=== PATIENT | female | born 1990 | race Caucasian/White ===

== ENCOUNTER → 2017-11-09 | Outpatient (CLI) | payer OTHER | END | disposition home or self-care (01) | LOC: C.PAPS 18:36 | PROVIDERS: ATTEND Physician Assistant | DX: Z01.411 Encounter for gynecological examination (general) (routine) with abnormal findings (principal); R87.628 Other abnormal cytological findings on specimens from vagina ==

== ENCOUNTER 2019-11-18 11:02 | Inpatient (IN) ==
[2019-11-18] MEDS ORDERED: BETAMETH SOD PHOS/ACETATE IA 6 MG/ML IM STA (11:29)
[2019-11-18] MEDS ORDERED: OXYTOCIN 30 UNITS/500 ML BAG IV PRN ×2 (11:29→22:29)
[2019-11-18] MEDS ORDERED: LACTATED RINGER'S 1,000 ML IV PRN (11:29)
[2019-11-18] MEDS ORDERED: PENICILLIN G POTASSIUM 6 MU in DEXTROSE 5% 250 ML IV STA (11:29)
[2019-11-18] MEDS ORDERED: PENICILLIN G POTASSIUM 3 MU in DEXTROSE 5% 100 ML IV PRN (11:29)
[2019-11-18] MEDS ORDERED: BETAMETH SOD PHOS/ACETATE IA 6 MG/ML ONE (11:34)
--- NOTE | 2019-11-18 11:42 | History & Physical Report ---
Date of Service November 18, 2019 Assessment & Plan (1) : IV fluids, EFM/toco. Penicillin for unknown GBS. Celestone - will give first dose, unlikely she will be able to recieve 2nd dose in 24h. I have discussed case with physical therapy nurse Dr Jack and he will attend delivery. (2) labor: History of Present Illness Chief Complaint: labor Primary Care Provider: Callie Pak MD 29yo @ 33 10/14, presents with pains that come and go every few minutes. Has been feeling unwell for the past few days, and this got much worse today with loose-stool diarrhea and vaginal spotting. That vaginal spotting started at 7:30am today - while she did not feel that this was her membranes rupturing, will assume that this is when SROM occurred. complicated by: elevated BMI, rubella equivocal, insufficient fraction on NIPT. She was evaluated by MFM at [place] - and declined further testing. Allergies Allergy/AdvReac Type Severity Reaction Status Date / Time No Known Allergies Allergy Verified 11/11/19 08:43 Home Medications Home Medications Medication Instructions Recorded Confirmed Type [id number] fumarate-FA 1 tab PO DAILY 07/03/19 11/11/19 History [] Patient History Medical History Ovarian cyst Varicella Surgical History S/P wisdom tooth extraction Family History Father Heart disease Hypertension Hypercholesteremia Social History Preferred Language: Italian marital status: marital status details: Yovani Hamilton (27) [phone] Current Living Situation: Spouse current occupational status: employed 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 No s/s chorio or abruption. Skin: no rashes, warm and dry Psychiatric: A+Ox3, euthymic affect Results & Data Vital Signs (Past 12 Hours) Vital Signs Pulse BP 11/18/19 11:09 89 136/68 Monitoring External Monitor FHT 140s-150s. Mod lolis. No accels. No decels. [place] no ctx on toco, however per patients sensations, she seems to be patrick Q 3m. Not able to palpate ctx through abdomen - this is likely due to body habitus. Coding Level of Care Code None Diagnoses Z34.90 labor O60.00
[2019-11-18 11:50] LABS: Hematocrit (blood only) 40.2 % (37-47); Hemoglobin 13.7 g/dL (12.0-16.0); Mean Corpuscular Hemoglobin 29.7 pg (25-34); Mean Corpuscular Volume 87.2 fL (80-100); Mean Platelet Volume 11.1 fL (7.4-10.4); Platelet Count 158 K/uL (130-400); RDW Coefficient of Variation 13.8 % (11.5-14.5); RDW Standard Deviation 43.8 fL (36.4-46.3); Red Blood Count 4.61 M/uL (4.2-5.4); White Blood Count 21.62 K/uL (4.8-10.8)
[2019-11-18 11:55] LABS: Mean Corpuscular Hgb Conc 34.1 g/dL (32-36)
[2019-11-18] MEDS ORDERED: MoRPHine SULFATE 2 MG/ML CARP ONE (12:28)
[2019-11-18] MEDS ORDERED: MoRPHine SULFATE 4 MG/ML 1 ML CARP\\VIAL ONE (12:28)
[2019-11-18] MEDS ORDERED: MoRPHine SULFATE 10 MG/ML CARP/VIAL IV STA (12:31)
[2019-11-18] MEDS ORDERED: PROMETHAZINE HCL 12.5 MG in SODIUM CHLORIDE 0.9% 50 ML IV ONE (12:40)
--- NOTE | 2019-11-18 12:49 | Anesthesiology Consultation ---
Date of Service November 18, 2019 Assessment & Plan Chart Review Chart Review: Acceptable Risk for Surgery and Acceptable Risk for Labor Epidural Consults Requested none ASA ASA2 Proposed Anesthesia Anesthesia Type: Spinal Risk / Benefits Reviewed With: PT / POA / Parent / Guardian, Accepts Plan and Informed Consent Obtained Additional Comments: saddleblock History Height/Weight Height: 5 ft 4 in Weight: 106.594 kg Allergies Allergy/AdvReac Type Severity Reaction Status Date / Time No Known Allergies Allergy Verified 11/11/19 08:43 Medications Home Medications Medication Instructions Recorded Confirmed Last Taken [id number] fumarate-FA 1 tab PO DAILY 07/03/19 11/11/19 Unknown [] Active Medications Generic Name Dose Route Start Last Admin Trade Name Freq PRN Reason Stop Dose Admin Lactated Ringer's 1,000 mls @ 125 mls/hr 11/18/19 11:29 11/18/19 11:30 Lr IV 11/20/19 11:28 999 mls/hr .Q8H PRN Administration L&D Protocol Protocol Oxytocin 30 units in 500 mls @ 333.333 mls/hr 11/18/19 11:29 11/18/19 12:30 Pitocin IV 12/18/19 11:28 59.94 units/hr .Q1H30M PRN 999 mls/hr Bleeding Control Administration Protocol 20 UNITS/HR Promethazine HCl 12.5 mg/ 50.5 mls @ 202 mls/hr 11/18/19 12:40 11/18/19 12:41 Sodium Chloride IV 11/18/19 12:54 202 mls/hr NOW ONE Administration NPO Date Last Intake of Fluids: 11/18/19 Time Last Intake of Fluids: 00:00 Date Last Intake of Solids: 11/18/19 Time Last Intake of Solids: 00:00 Past Medical History Medical History Ovarian cyst Varicella Exercise / Class Metabolic Activity II 4-5 Yardwork/Stairs/Walk up hill Past Family History Family History Father Heart disease Hypertension Hypercholesteremia Past Surgical History Surgical History S/P wisdom tooth extraction Past Anesthesia History No Hx of Anesthesia Complications and No Family Hx of Anesthesia Complications History of PONV No Hx of PONV and No Hx of Motion Sickness Social History Smoking Status: Never smoker Hx Alcohol Use: No Hx Substance Use: No Physical Exam Vital Signs Last Vital Signs Temp 37.5 C 11/18/19 11:09 Pulse 117 H 11/18/19 12:39 Resp 20 11/18/19 11:09 BP 124/56 L 11/18/19 12:39 ENMT Mouth: no TMJ abnormality Thyromental Distance: > or= 3.5 Finger Breadths Mallampati Class: II Neck normal visual inspection and trachea midline; neck extension not limited Respiratory normal respiratory effort Auscultation: lungs clear to auscultation bilaterally Cardiovascular Rate/Rhythm: regular rate and regular rhythm Heart Sounds: no murmur Musculoskeletal Spine: normal cervical ROM Extremities: full ROM of extremities Neurologic moves all extremities Psychiatric Orientation: alert and oriented x 3 Testing Laboratory Results 11/18/19 11:42
--- NOTE | 2019-11-18 13:17 | Delivery Summary ---
Vaginal Delivery Summary Date of Service November 18, 2019 Vaginal Delivery Summary Vaginal Delivery Summary: Pre-delivery diagnoses: 29yo @ 33 3/7, labor, obesity, insufficient fraction on NIPT, rubella equivocal Post-delivery diagnoses: same Procedure: spontaneous vaginal delivery Surgeon: Josseline Briseno DO Complications: none Findings: Viable male . Apgars: 8/9. Weight 4# 4.8oz Estimated blood loss: 400ml Description of delivery: The patient arrived to L&D at 9cm dilation and very uncomfortable. She quickly progressed to complete dilation. She rec'd loading dose Pen G for GBS unknown status, rec'd 1 dose celestone pre-delivery. She then began to push. She spontaneously vaginally delivered a viable from the cephalic presentation. The head delivered in DORI position. The shoulders and body delivered quickly. The baby was placed on mother's abdomen and a spontaneous cry was heard. The cord was doubly clamped and cut and the baby was handed off to the waiting tip cementer. A segment was retained for cord gases. Cord blood was obtained. The placenta was delivered spontaneously intact with a 3-vessel cord. The uterus and vagina were swept of clots and debris. IV pitocin was given. The uterus became firm. She was given 6mg morphine and 12.5mg phenergan and local infiltration of 1% lidocaine, however she had a large amount of pain with examination of the cervix, vagina, and perineum, and therefore exam was halted, she requested anesthesia consult before proceeding. Excellent hemostasis was observed. Will perform better examination and repair after anesthesia performs saddle block. Patient is not actively bleeding at the time, so I feel that waiting for better anesthesia is safe. The mother is recovering in stable and good condition in the room. Baby has been taken to the nursery for further eval by tip cementer. Josseline Briseno DO FACMIRANDAG
[2019-11-18] MEDS ORDERED: DiphenhydrAMINE HCL 50 MG/ML VIAL IV PRN (13:21)
[2019-11-18] MEDS ORDERED: ONDANSETRON INJ 2 MG/ML 2 ML VIAL IV PRN (13:21)
[2019-11-18] MEDS ORDERED: NALOXONE HCL 0.08 MG in SYRINGE 1.8 ML IV PRN (13:21)
[2019-11-18] MEDS ORDERED: NALOXONE HCL 0.4 MG/1 ML VIAL/CARP IV PRN (13:21)
[2019-11-18] MEDS ORDERED: NALBUPHINE HCL INJ 10 MG/ML AMP IV PRN (13:21)
[2019-11-18] MEDS ORDERED: LACTATED RINGER'S 500 ML IV PRN (13:21)
[2019-11-18] MEDS ORDERED: ePHEDrine sulfate 50 MG/ML AMP IV PRN (13:21)
[2019-11-18] MEDS ORDERED: KETOROLAC 30 MG/ML VIAL IV PRN (13:21)
[2019-11-18] MEDS ORDERED: NALOXONE HCL 1 MG in SODIUM CHLORIDE 0.9% 1000ML 1,000 ML IV PRN (13:21)
[2019-11-18 13:22] LABS: CO2 Cord Arterial Blood 53 mmHg (39.1-73.5); HCO3 Cord Arterial Blood 24 mmol/L (19.7-28.5); PO2 Cord Arterial Blood 19 mmHg (4.1-31.7); pH Cord Arterial Blood 7.27 (7.1-7.38)
[2019-11-18 13:23] LABS: Oxygen Sat Cord Arterial Blood < 60.0 % (<60)
[2019-11-18] MEDS ORDERED: SODIUM CHLORIDE 0.9% 1000ML 1,000 ML IV SCH (13:30)
--- NOTE | 2019-11-18 13:52 | Anesthesiology Progress Note ---
Date of Service November 18, 2019 Anesthesia Post Procedure Vital Signs Vital Signs: Temp Pulse Resp BP Pulse Ox 11/18/19 13:50 82 98 11/18/19 13:45 79 99 11/18/19 13:40 83 99 11/18/19 13:38 80 110/55 L 11/18/19 13:35 78 100 11/18/19 13:30 89 100 11/18/19 13:28 95 H 118/55 L 11/18/19 13:25 85 99 11/18/19 13:23 90 123/73 11/18/19 13:20 109 H 100 11/18/19 13:15 91 H 100 11/18/19 13:13 93 H 116/69 11/18/19 13:10 99 H 99 11/18/19 13:07 108 H 114/62 11/18/19 13:05 114 H 99 11/18/19 13:00 115 H 99 11/18/19 12:55 108 H 100 11/18/19 12:53 122 H 115/73 11/18/19 12:50 100 H 100 11/18/19 12:48 93 H 114/54 L 11/18/19 12:39 117 H 124/56 L 11/18/19 12:25 155 H 153/70 H 11/18/19 12:09 98 H 131/61 11/18/19 11:54 104 H 133/86 11/18/19 11:09 37.5 C 89 20 136/68 Transfer of Care Handoff Completed per policy Notes Mental Status: alert / awake / arousable Patient Amnestic to Procedure: Yes Nausea / Vomiting: adequately controlled Pain: adequately controlled Airway Patency, RR, SpO2: stable & adequate BP & HR: stable & adequate Hydration State: stable & adequate Anesthetic Complications: no major complications apparent and Pt Satisfied with anesthetic care
[2019-11-18] MEDS: IBUPROFEN 200 MG/10 ML UDC PO PRN (20:32)
[2019-11-18] MEDS ORDERED: BENZOCAINE 20% AER SPR 82.5 GM CAN EXT PRN ×2 (21:35→22:29)
[2019-11-18] MEDS ORDERED: bisacodyL 10 MG SUPP PR PRN (22:29)
[2019-11-18] MEDS ORDERED: SUPERCREAM 0.870% 15 GM JAR EXT PRN (22:29)
[2019-11-18] MEDS ORDERED: ACETAMINOPHEN SUSP 325 MG/10.15 ML UDC PO STA (22:29)
[2019-11-18] MEDS ORDERED: DIPHTHERIA/TETANUS/PERTUSSIS 0.5 ML SYR/VIAL IM ONE (22:29)
[2019-11-18] MEDS ORDERED: HYDROCORTISONE ACETATE 25 MG SUPP PR PRN (22:29)
[2019-11-18] MEDS ORDERED: ACETAMINOPHEN SUSP 325 MG/10.15 ML UDC PO PRN (22:29)
[2019-11-19 06:01] LABS: Hematocrit (blood only) 33.9 % (37-47); Hemoglobin 11.3 g/dL (12.0-16.0)
[2019-11-19] MEDS ORDERED: PRENATAL VITAMIN 1 TAB PO SCH (08:00)
--- NOTE | 2019-11-19 08:18 | Obstetrical Progress Note ---
Date of Service November 19, 2019 Assessment & Plan (1) : PPD#1 doing well. Patient desires discharge so she can get to [facility] to be with baby. Baby was transferred after delivery at 33w. Reviewed DC instructions, followup office 6w. Subjective Ambulation: ambulating normally Voiding: no voiding problems Diet Tolerance:: regular diet Lochia:: Moderate Feeding Type:: breast feeding PPD#1 doing well. Breast pumping. Review of Systems All systems reviewed & are unremarkable except as noted in HPI & below Physical Exam Constitutional WD/WN, vitals as above no acute distress Respiratory normal respiratory effort Cardiovascular Rate/Rhythm: regular rate and regular rhythm Gastrointestinal (Abdomen) Inspection/Auscultation: abdomen normal to inspection; abdomen not distended Percussion/Palpation: abdomen soft Genitourinary OB Exam Abdomen: + fundal height Fundus: + firm; not tender Results & Data Vital Signs (Past 12 Hours) Vital Signs Temp Pulse Resp BP 11/19/19 03:30 37.0 C 81 16 99/54 L 11/18/19 23:55 36.9 C 90 16 91/55 L
[2019-11-19] MEDS ORDERED: NON-FORMULARY MEDICATION (Pnv133-Ferrous Fumarate-Fa [Prenatal] 1 TAB) PO SCH (09:00)
[2019-11-19] MEDS: IBUPROFEN 200 MG/10 ML UDC PO PRN (10:00)
[2019-11-19] MEDS ORDERED: MEASLES, MUMPS & RUBELLA VIRUS VIAL SQ ONE (11:00)
== END 2019-11-19 12:25 | disposition home or self-care (01) | DRG 807 ==
LOC: OPB 11:02 → 4S1 11:04 → 4S2 17:32

== ENCOUNTER 2022-03-18 01:30 | Inpatient (IN) ==
[2022-03-18] MEDS ORDERED: LIDOCAINE 1% LOCAL 20 ML VIAL ONE (01:44)
[2022-03-18] MEDS ORDERED: BUTORPHANOL TARTRATE 1 MG/ML VIAL ONE (01:44)
[2022-03-18] MEDS ORDERED: HYDROCORTISONE ACETATE 25 MG SUPP PR PRN (02:00)
[2022-03-18] MEDS ORDERED: BENZOCAINE 20% AER SPR 82.5 GM CAN EXT PRN (02:00)
[2022-03-18] MEDS ORDERED: OXYTOCIN 30 UNITS/500 ML BAG IV PRN (02:00)
[2022-03-18] MEDS ORDERED: ACETAMINOPHEN 325 MG TAB PO PRN (02:00)
[2022-03-18] MEDS ORDERED: DIPHTHERIA/TETANUS/PERTUSSIS 0.5 ML SYR/VIAL IM ONE (02:00)
[2022-03-18 02:11] LABS: Hematocrit (blood only) 39.6 % (34.1-44.9); Hemoglobin 12.9 g/dl (12.0-16.0); Mean Corpuscular Hemoglobin 27.2 pg (25.0-34.0); Mean Corpuscular Hgb Conc 32.6 g/dL (32.0-36.0); Mean Corpuscular Volume 83.5 fL (80.0-100.0); Mean Platelet Volume 12.1 fL (9.4-12.3); Platelet Count 169 K/uL (130-400); RDW Coefficient of Variation 13.4 % (11.5-14.5); RDW Standard Deviation 40.7 fL (36.4-46.3); Red Blood Count 4.74 M/uL (3.93-5.22); White Blood Count 10.58 K/ul (4.8-10.8)
--- NOTE | 2022-03-18 02:17 | History & Physical Report ---
Date of Service March 18, 2022 Assessment & Plan (1) Status post vaginal delivery: Plan: 31 y/o now s/p delivery at home after precipitous labor and now delivery of placenta VSS pitocin running Attempted exam demonstrated what appears to be a 2nd degree however pt is intolerant of exam even after stadol. Had to get a saddle block with last delivery to get adequate cervical exam. Bleeding appears appropriate so I think ok to await anesthesia so that repair can be tolerated by pt and thorough exam can be performed Anesthesia contacted as unable to adequately perform exam to identify tears. Admission and Anticipated Discharge Date Admission Date: March 18, 2022 History of Present Illness Chief Complaint: Delivery at home Primary Care Provider: Callie Pak MD 31 y/o at 38 6/7 wga presented to L&D after delivery at home. Pt had called earlier this evening noting 1 ctx per hour. She was counseled regarding labor precautions and continued to monitor her symptoms. Approx 4 hours later she called noting contractions were q20-30 min and stronger than prior. Labor precautions/options were reviewed. 20 minutes later she noted that contractions were every few minutes and incredibly painful and was instructed to present to the hospital by ambulance as her is on a work trip. A few minutes prior to EMS arrival pt delivered at home. 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 Hx G1 2019 at 34 wks after PPROM G2 current 06/2021 neg cotest Allergies Allergy/AdvReac Type Severity Reaction Status Date / Time No Known Allergies Allergy Verified 03/18/22 02:05 Home Medications Medication Instructions Recorded Confirmed Type vit no.133-ferrous 1 tab PO DAILY 07/03/19 03/17/22 History fumarate 28 mg-folic acid 800 mcg tablet () Patient History Medical History Ovarian cyst delivery PROM (premature rupture of membranes) Varicella Surgical History S/P wisdom tooth extraction Family History Father Heart disease Hypertension Hypercholesteremia Lung cancer Uncle Prostate cancer Denies family history of Ovarian cancer Diabetes Breast cancer Social History Smoking Status: Never smoker Hx Alcohol Use: No Hx Substance Use: No Preferred Language: Turkish Communication Ability: Effective Community Development Planner Required: No Beliefs That Will Affect Care: None marital status: marital status details: Yovani Hamilton (29) [phone] Current Living Situation: Spouse Current Living Situation Comment: FOB, child, 1 dog current occupational status: employed current occupation: [employer] Feels Safe at Home: Yes Assistive Devices: None Results & Data ([facility]) Vital Signs (Past 12 Hours) Vital Signs Pulse BP 03/18/22 02:02 86 124/70 Coding Level of Care Code None Diagnoses Status post vaginal delivery
--- NOTE | 2022-03-18 02:35 | Anesthesiology Consultation ---
Date of Service March 18, 2022 Assessment & Plan Chart Review Chart Review: Patient NOT seen in Pre Admission Testing and Acceptable Risk for Labor Epidural Consults Requested none ASA ASA2 Proposed Anesthesia Anesthesia Type: Spinal (saddle block) Risk / Benefits Reviewed With: PT / POA / Parent / Guardian, Accepts Plan and Informed Consent Obtained History Height/Weight Height: 5 ft 4 in Weight: 111.13 kg Allergies Allergy/AdvReac Type Severity Reaction Status Date / Time No Known Allergies Allergy Verified 03/18/22 02:05 Medications Home Medications Medication Instructions Recorded Confirmed Last Taken vit no.133-ferrous 1 tab PO DAILY 07/03/19 03/18/22 03/17/22 17:00 fumarate 28 mg-folic acid 800 mcg tablet () Active Medications Generic Name Dose Route Start Last Admin Trade Name Freq PRN Reason Stop Dose Admin Oxytocin 30 units in 500 mls @ 333.333 mls/hr 03/18/22 02:00 03/18/22 01:40 Pitocin IV 59.94 units/hr .Q1H30M PRN 999 mls/hr Bleeding Control Administration Protocol 20 UNITS/HR Past Medical History Medical History Ovarian cyst delivery PROM (premature rupture of membranes) Varicella Exercise / Class Metabolic Activity II 4-5 Yardwork/Stairs/Walk up hill Past Family History Family History Father Heart disease Hypertension Hypercholesteremia Lung cancer Uncle Prostate cancer Denies family history of Ovarian cancer Diabetes Breast cancer Past Surgical History Surgical History S/P wisdom tooth extraction Past Anesthesia History No Hx of Anesthesia Complications and No Family Hx of Anesthesia Complications History of PONV No Hx of PONV and No Hx of Motion Sickness Social History Smoking Status: Never smoker Hx Alcohol Use: No Hx Substance Use: No substance use type: does not use Physical Exam Vital Signs Last Vital Signs Temp 37.0 C 03/18/22 02:06 Pulse 80 03/18/22 02:33 Resp 18 03/18/22 02:06 BP 118/66 03/18/22 02:33 ENMT Mouth: no dentition abnormality Thyromental Distance: > or= 3.5 Finger Breadths Mallampati Class: II Neck normal visual inspection Respiratory normal respiratory effort Auscultation: lungs clear to auscultation bilaterally Cardiovascular Rate/Rhythm: regular rate and regular rhythm Psychiatric Orientation: alert Testing Laboratory Results 03/18/22 01:30
--- NOTE | 2022-03-18 03:27 | Delivery Summary ---
Vaginal Delivery Summary Date of Service March 18, 2022 Vaginal Delivery Summary 2nd Degree LAC PREOPERATIVE DIAGNOSIS: 1. Single intrauterine at 38 6/7 wga 2. Status post home vaginal delivery 3. Status post delivery of placenta 4. Second degree laceration POSTOPERATIVE DIAGNOSIS: 1. Single intrauterine at 38 6/7 wga 2. Status post home vaginal delivery 3. Status post delivery of placenta 4. Second degree laceration PROCEDURE: 1. Repair of second degree laceration SURGEON: Suly Boyer MD ANESTHESIA: Saddle block ESTIMATED BLOOD LOSS: 150 mL (from arrival, delivery of placenta, repair of laceration) FLUIDS: Continuous LR. URINE OUTPUT: Not measured COMPLICATIONS: None. CONDITION: Stable. INDICATIONS: 31 y/o at 38 6/7 wga presented following delivery at home. She arrived to L&D with placenta in situ, appropriate bleeding noted. FINDINGS: Second degree laceration SPECIMEN: None. OPERATIVE REPORT: Upon arrival to L&D, pt was moved over to a labor bed and placed in stirrups. Shortly thereafter, placenta spontaneously delivered intact with 3-vessel cord. oxytocin was started and there was good hemostasis. Gentle examination noted what appeared to be a second degree laceration however pt did not tolerate exam and so saddle block was performed by anesthesia. Once she was comfortable, a second degree laceration was noted and repaired using 3-0 vicryl in the usual fashion. There was excellent hemostasis. All sponge and needle counts were correct x 2. [facility] Vaginal Delivery Charge Vaginal Delivery Codes: 68108 global code for the antepartum, delivery, and post- Delivery Type Details: 2nd Degree LAC
--- NOTE | 2022-03-18 03:37 | Anesthesia Procedure Note ---
Date of Service March 18, 2022 Anesthesia Post Epidural Note Vital Signs Vital Signs: Temp Pulse Resp BP Pulse Ox 37.0 C 95 H 18 111/68 94 03/18/22 02:06 03/18/22 03:33 03/18/22 02:06 03/18/22 03:33 03/18/22 03:17 Notes Mental Status: alert / awake / arousable and participated in evaluation Nausea / Vomiting: adequately controlled Pain: adequately controlled Airway Patency, RR, SpO2: stable & adequate BP & HR: stable & adequate Hydration State: stable & adequate Neuraxial Anesthesia: was administered and sensory block is resolving Anesthetic Complications: no major complications apparent and Pt Satisfied with anesthetic care
[2022-03-18] MEDS: IBUPROFEN 600 MG TAB PO PRN ×2 (03:43→10:48)
[2022-03-18] MEDS ORDERED: DOCUSATE SODIUM 100 MG CAP PO SCH (08:00)
[2022-03-18] MEDS: PRENATAL VITAMIN 1 TAB PO SCH (08:23)
[2022-03-18] MEDS ORDERED: Nursing to Pharmacy Communication SCH (08:30)
[2022-03-18] MEDS: DOCUSATE SODIUM SYRUP 100 MG/10 ML UDC PO SCH ×2 (10:47→20:06)
[2022-03-18] MEDS ORDERED: AMPICILLIN/SULBACTAM SOD 3,000 MG in 0.9 % SODIUM CHLORIDE 100 ML IV STA (23:25)
[2022-03-18] MEDS ORDERED: IBUPROFEN 200 MG/10 ML UDC PO PRN (23:52)
[2022-03-18] MEDS ORDERED: ACETAMINOPHEN SUSP 160 MG/5 ML UDC PO PRN (23:53)
[2022-03-19 06:55] LABS: Hematocrit (blood only) 32.3 % (34.1-44.9); Hemoglobin 10.5 g/dl (12.0-16.0); Mean Corpuscular Hemoglobin 27.6 pg (25.0-34.0); Mean Corpuscular Hgb Conc 32.5 g/dL (32.0-36.0); Mean Platelet Volume 11.9 fL (9.4-12.3); Platelet Count 144 K/uL (130-400); RDW Coefficient of Variation 13.7 % (11.5-14.5); RDW Standard Deviation 42.2 fL (36.4-46.3); White Blood Count 9.77 K/ul (4.8-10.8)
--- NOTE | 2022-03-19 07:48 | Obstetrical Progress Note ---
Date of Service <Vani Christian DO - Last Filed: 03/19/22 07:48> March 19, 2022 Assessment & Plan <Vani Christian DO - Last Filed: 03/19/22 07:48> (1) Status post vaginal delivery: Plan s/p PPD 1 -O+, GBS-, rubella immune -hemoglobin reviewed, 12.9 (8/9) -Febrile overnight, denies chills or body aches. Likely hand foot and mouth as her toddler was recently diagnosed. -encourage ambulation, continue regular diet and monitor lochia. -encourage breast feeding -discussed discharge instructions with patient <Hilda Wayne MD - Last Filed: 03/19/22 08:06> (1) Status post vaginal delivery: Subjective <Vani Christian DO - Last Filed: 03/19/22 07:48> Constitutional: no fever, no chills or no sweats Respiratory: no cough, no dyspnea or no wheezing Cardiovascular: no chest pain, no palpitations or no calf pain Breast: no breast pain Genitourinary (female): no dysuria Neurologic: no headache(s) <Hilda Wayne MD - Last Filed: 03/19/22 08:06> Constitutional: + fever Physical Exam <Vani Christian DO - Last Filed: 03/19/22 07:48> Montse is a 31 y/o female who is PPD #1 following at home. She reports feeling well overall this morning. Some abdominal cramping but pain well managed on analgesics. Voiding without issue. Tolerating meals overnight and able to ambulate some. Is passing gas and no bowel movement. Has some persistent lochia with some improvement this morning. Currently breast feeding. States she is feeling "hot" but denies chills. Her 2 y/o child has HFM currently Constitutional WD/WN, vitals as above no acute distress Respiratory no respiratory distress Auscultation: lungs clear to auscultation bilaterally; no rales, no rhonchi and no wheezes Cardiovascular RRR, no murmur, no edema Extremities: no calf tenderness and no edema Negative Jailene's sign bilaterally. Gastrointestinal (Abdomen) Inspection/Auscultation: normal bowel sounds Genitourinary Uterine fundus firm, palpable below the umbilicus. Results & Data ([facility]) <Vani Christian DO - Last Filed: 03/19/22 07:48> Vital Signs (Past 12 Hours) Vital Signs Temp Pulse Resp BP O2 Del Method 03/19/22 03:00 36.8 C 92 H 16 104/71 03/19/22 01:15 37.7 C H 03/19/22 00:45 38.1 C H 03/18/22 23:00 38.4 C H 118 H 16 110/74 Room Air <Hilda Wayne MD - Last Filed: 03/19/22 08:06> Co-Signing Physician Notes Resident Physician Supervision Note: I interviewed and examined the patient. Discussed with Dr. Christian and agree with findings and plan as documented in the note. Any exceptions or clarifications are listed here: Patient with fever overnight. Denies any other accompanying symptoms, and specifically denies uterine / pelvic pain, increased lochia, or foul smell to vaginal discharge. Her toddler at home has been suffering with Hand/Foot/Mouth virus, and expected to be out of his infectious phase in about 3 more days...so the patient very likely has been exposed and infected with that virus. I ordered a dose of Unasyn 3g IV overnight at onset of fever in the event that she was actually developing endomyometritis, and discussed with the patient this morning that she may be at higher risk for endomyometritis as she delivered outside the hospital setting - however she was able to describe to me that her actual delivery was "hands-off" in her home environment, and no internal palpation or exam was ever done by EMS or other providers, so in fact she may actually be very low risk. Given her lack of pelvic pain or other symptoms of endometritis, and the likelihood that she has a viral fever, we discussed the supportive care of HFM and the role of her pediat rician in giving any guidance re: her (who has also likely been exposed to HFM already). We discussed watching for pelvic pain, foul discharge, or increased lochia and notifying the [facility] office promptly as we cannot likely use fever to warn us of developing uterine infection; should she have any of these symptoms, it would be worth considering outpatient oral antibiotics. At this time I think it unlikely antibiotics are necessary and we can avoid their side effects while observing what is likely a mild viral infection. Documented By: Hilda Wayne MD, FACOG Resident Activity Tracking <Vani Christian, DO - Last Filed: 03/19/22 07:48> Resident Involvement: Resident Care Provided Care Provided: OB Delivery
[2022-03-19] MEDS: DOCUSATE SODIUM SYRUP 100 MG/10 ML UDC PO SCH (08:10)
[2022-03-19] MEDS: PRENATAL VITAMIN 1 TAB PO SCH (08:15)
[2022-03-19 11:50] LABS: Basophils # (auto) 0.04 K/uL (0-0.2); Basophils % (auto) 0.4 %; Eosinophils # (auto) 0.09 K/uL (0-0.50); Eosinophils % (auto) 0.9 %; Hematocrit (blood only) 32.8 % (34.1-44.9); Hemoglobin 10.8 g/dl (12.0-16.0); Immature Granulocytes # (auto) 0.11 K/uL (0.00-0.02); Immature Granulocytes % (auto) 1.1 %; Lymphocytes # (auto) 1.09 K/uL (1.2-3.4); Lymphocytes % (auto) 10.9 %; Mean Corpuscular Hemoglobin 27.5 pg (25.0-34.0); Mean Corpuscular Hgb Conc 32.9 g/dL (32.0-36.0); Mean Corpuscular Volume 83.5 fL (80.0-100.0); Monocytes # (auto) 0.59 K/uL (0.24-0.82); Monocytes % (auto) 5.9 %; Neutrophils # (auto) 8.11 K/uL (1.4-6.5); Neutrophils % (auto) 80.8 %; Platelet Count 149 K/uL (130-400); RDW Coefficient of Variation 13.7 % (11.5-14.5); RDW Standard Deviation 41.2 fL (36.4-46.3); Red Blood Count 3.93 M/uL (3.93-5.22); White Blood Count 10.03 K/ul (4.8-10.8)
--- NOTE | 2022-03-19 12:20 | Obstetrical Progress Note ---
Date of Service March 19, 2022 Assessment & Plan (1) Fever of unknown origin: Plan: On exam she has no tenderness or localizing signs except for mild erythema in her pharynx. I see no ulcerations in her mouth either. She has no other dermatologic changes that would give us a diagnosis of certainty for ucve-dxne-uln-mouth disease but I suspect that this is the reason she has a temperature now. White count is within normal range. We will recheck a COVID swab as well prior to discharge to be complete. We will discharge her with instructions to continue with good handwashing and to wear a mask while she is around her infant daughter. All of the family's mem bers should wear a mask while there near the as well. Instructed her to call if she has any localizing symptoms like pelvic pain purulent vaginal discharge. Calf Tenderness, pain and swelling. Or persistent spiking temperature elevations 101 degrees or higher. Admission and Anticipated Discharge Date Admission Date: March 18, 2022 Subjective I was called to reevaluate Law because her temperature is elevated again at 100.8. She is now complaining of a sore throat which was relieved with a dose of liquid Tylenol. She has no body aches or chills. She has no breast pain no pelvic pain nor any unusual vaginal discharge at this time. White count early this morning was 9000 repeat count done at 11 AM was 10,000. Bertin at home has been diagnosed with fhvh-hkgj-ozk-mouth disease prior to her admission. she denies any calf pain or swelling. Review of Systems Review of Systems: All systems reviewed & are unremarkable except as noted in HPI & below Physical Exam Constitutional: WD/WN, vitals as above Psychiatric: A+Ox3, euthymic affect Genitourinary: OB Exam Abdomen: + fundal height Fundus: + firm and + relation to umbilicus (4 below U ); not tender Results & Data ([facility]) Vital Signs (Past 12 Hours) Vital Signs Temp Pulse Pulse Resp BP Pulse Ox O2 Del Method 03/19/22 11:05 100.8 F H 107 H 18 98 03/19/22 08:25 98.6 F 92 H 16 117/80 98 Room Air 03/19/22 03:00 98.2 F 92 H 16 104/71 03/19/22 01:15 99.9 F H 03/19/22 00:45 100.6 F H PG Care Time/CCT Total # of Minutes Spent Total Time Spent with Patient: Total time spent is greater than 50% in coordination of care (as documented) at patient's floor/unit and/or counseling patient: Coding Level of Care Code None Diagnoses Fever of unknown origin R50.9
[2022-03-19] MEDS ORDERED: bisacodyL 5 MG TABEC PO SCH (20:00)
[2022-03-20] MEDS ORDERED: bisacodyL 10 MG SUPP PR PRN
--- NOTE | 2022-03-24 13:38 | Discharge Summary ---
Date of Service March 24, 2022 Admission HPI Per Admitting Provider 31 y/o at 38 6/7 wga presented to L&D after delivery at home. Pt had called earlier this evening noting 1 ctx per hour. She was counseled regarding labor precautions and continued to monitor her symptoms. Approx 4 hours later she called noting contractions were q20-30 min and stronger than prior. Labor precautions/options were reviewed. 20 minutes later she noted that contractions were every few minutes and incredibly painful and was instructed to present to the hospital by ambulance as her is on a work trip. A few minutes prior to EMS arrival pt delivered at home. On arrival placenta was still in situ however shortly after arrival onto unit placenta delivered spontaneously PNI: Hx PPROM w/ PTD, declined sonia Past [employer] Hx G1 2019 at 34 wks after PPROM G2 current 06/2021 [facility] Course (1) Status post vaginal delivery: (2) Fever of unknown origin: Plan 31 y/o at 38 6/7 wga presented following delivery at home. She arrived to L&D with placenta in situ, appropriate bleeding noted. Upon arrival to L&D, pt was moved over to a labor bed and placed in stirrups. Shortly thereafter, placenta spontaneously delivered intact with 3-vessel cord. oxytocin was started and there was good hemostasis.Second degree laceration was then repaired following administration of saddle block by anesthesia. course complicated by fever that was suspected to be related to son's recent diagnosis of [id number]. She was discharged home on PPD1 with respiratory and fever precautions Coding Level of Care Code None Diagnoses Status post vaginal delivery Fever of unknown origin R50.9
== END 2022-03-19 15:20 | disposition home or self-care (01) | DRG 806 ==
LOC: 4S1 01:30 → 4E2 05:54